=== PATIENT | male | born 2000 | race American Indian/Alaskan Native ===

== ENCOUNTER 2019-03-05 17:34 | Emergency (ER) | payer OTHER ==
--- NOTE | 2019-03-05 18:25 | Emergency Department Report ---
Chief Complaint: Nausea/Vomiting/Diarrhea Stated Complaint: STOMACH VIRUS/FOOD POISON Time Seen by Provider: 03/05/19 18:21 - HPI History of Present Illness: This is a 18 y.o. male that presents to the ER with n/v/d and abdominal pain since last night. Patient reports eating dinner he prepared and felt sick after eating dinner. No PMH Denies chest pain, sob, tarry stools, urinary frequency, urgency, hematuria, or dysuria. - Exam Vital Signs: Vital Signs 03/05/19 18:20 Temperature 97.9 F Pulse Rate 105 H Respiratory 18 Rate Blood Pressure 116/67 O2 Sat by Pulse 100 Oximetry MSE screening note: Focused history and physical exam performed. Due to findings the following was ordered: labs ED Disposition for MSE Condition: Stable
[2019-03-05 18:53] LABS: Basophils % (Auto) 0.2 % (0.0-1.8); Eosinophils % (Auto) 0.1 % (0.0-4.3); Hematocrit 50.7 % (35.5-45.6); Hemoglobin 16.8 gm/dl (11.8-15.2); Lymphocytes # (Auto) 0.7 K/mm3 (1.2-5.4); Lymphocytes % (Auto) 7.8 % (13.4-35.0); Mean Corpuscular HGB Conc 33 % (32-34); Mean Corpuscular Volume 82 fl (84-94); Monocytes # (Auto) 0.9 K/mm3 (0.0-0.8); Monocytes % (Auto) 10.1 % (0.0-7.3); Platelet Count 325 K/mm3 (140-440); Red Blood Count 6.18 M/mm3 (3.65-5.03); Red Cell Distribution Width 13.2 % (13.2-15.2)
[2019-03-05 19:20] LABS: Alanine Aminotransferase 42 units/L (7-56); Albumin 4.9 g/dL (3.9-5); BUN/Creatinine Ratio 17; Blood Urea Nitrogen 19 mg/dL (9-20); Calcium 10.6 mg/dL (8.4-10.2); Hemolysis Index 8
[2019-03-05] MEDS ORDERED: NACL 0.9% 1000 ML 1,000 ML IV ONE (20:15)
[2019-03-05] MEDS ORDERED: PEPCID IV ONE (20:16)
[2019-03-05] MEDS ORDERED: ZOFRAN IV ONE (20:16)
[2019-03-05] MEDS ORDERED: TORADOL IV ONE (20:16)
--- NOTE | 2019-03-05 20:25 | Emergency Department Report ---
ED N/V/D HPI - General Chief complaint: Nausea/Vomiting/Diarrhea Stated complaint: STOMACH VIRUS/FOOD POISON Time Seen by Provider: 03/05/19 18:21 Source: patient Mode of arrival: Ambulatory Limitations: No Limitations - History of Present Illness Initial comments: Patient is a 18-year-old -[place] male with no past medical history who presents to the ED with complaint of acute onset of persistent severe intractable nausea, vomiting, diarrhea and diffuse abdominal pain, worse in the epigastric area for the last 12 hours. Patient states that he is on brother has had similar symptoms but less severe. Patient attributes these symptoms to po ssibly the dinner he and family had over 24 hours ago. Patient states that he has had multiple episodes of nausea and vomiting and diarrhea all day. Patient denies fever, chills, chest pain, shortness of breath, sore throat, dysuria, urinary frequency and urgency, testicle pain or dizziness. MD complaint: nausea, vomiting, diarrhea, abdominal pain -: Sudden, hour(s) (12), This morning Description of Vomiting: food contents, watery, bilious Description of Diarrhea: water Associated Abdominal Pain: Yes (diffuse but more severe in the epigastric area) Location: diffuse, epigastric Radiation: none Severity: severe Pain Scale: 7 Quality: cramping, aching Consistency: intermittent Improves with: none Worsens with: eating, vomiting Context: possible food poisoning, sick contacts Associated Symptoms: loss of appetite, malaise, nausea/vomiting. denies: myalgias, chest pain, cough, diaphoresis, fever/chills, headaches, rash, dysuria, shortness of breath, syncope, weakness - Related Data Previous Rx's Medication Instructions Recorded Last Taken Type Dicyclomine [Bentyl] 20 mg PO Q6H PRN #20 tablet 03/05/19 Unknown Rx Diphenoxylate/Atropine [Lomotil] 1 tab PO Q4H PRN #15 tablet 03/05/19 Unknown Rx Ondansetron [Zofran Odt] 4 mg PO Q6HR #15 tab.rapdis 03/05/19 Unknown Rx Ranitidine HCl [Zantac] 150 mg PO Q12H #20 tablet 03/05/19 Unknown Rx Allergies Allergy/AdvReac Type Severity Reaction Status Date / Time No Known Allergies Allergy Verified 03/05/19 17:36 ED Review of Systems ROS: Stated complaint: STOMACH VIRUS/FOOD POISON Other details as noted in HPI Comment: All other systems reviewed and negative Constitutional: no symptoms reported, see HPI. denies: chills, diaphoresis, fever, malaise, weakness Eyes: as per HPI. denies: eye pain, eye discharge, vision change ENT: as per HPI. denies: ear pain, throat pain, dental pain, hearing loss, epistaxis, congestion Respiratory: no symptoms reported, see HPI. denies: cough, orthopnea, shortness of breath, SOB with exertion Cardiovascular: as per HPI. denies: chest pain, palpitations, dyspnea on exertion, edema, syncope, paroxysmal nocturnal dyspnea Endocrine: no symptoms reported, see HPI. denies: excessive sweating, flushing, intolerance to cold, intolerance to heat, increased hunger, increased thirst, increased urine, unexplained weight gain Gastrointestinal: as per HPI, abdominal pain, nausea, vomiting, diarrhea. denies: constipation, hematemesis, melena, hematochezia Genitourinary: as per HPI. denies: urgency, dysuria, frequency, hematuria, discharge, testicular pain Musculoskeletal: as per HPI. denies: back pain, joint swelling, arthralgia, myalgia Skin: as per HPI. denies: rash, lesions, change in color, change in hair/nails Neurological: as per HPI. denies: headache, weakness, numbness, paresthesias, abnormal gait Psychiatric: as per HPI Hematological/Lymphatic: as per HPI ED Past Medical Hx - Past Medical History Previous Medical History?: No - Surgical History Past Surgical History?: No - Social History Smoking Status: Never Smoker - Medications Home Medications: Home Medications Medication Instructions Recorded Confirmed Last Taken Type Dicyclomine [Bentyl] 20 mg PO Q6H PRN #20 tablet 03/05/19 Unknown Rx Diphenoxylate/Atropine [Lomotil] 1 tab PO Q4H PRN #15 tablet 03/05/19 Unknown Rx Ondansetron [Zofran Odt] 4 mg PO Q6HR #15 tab.rapdis 03/05/19 Unknown Rx Ranitidine HCl [Zantac] 150 mg PO Q12H #20 tablet 03/05/19 Unknown Rx ED Physical Exam - General Limitations: No Limitations General appearance: alert, in no apparent distress - Head Head exam: Present: atraumatic, normocephalic, normal inspection - Eye Eye exam: Present: normal appearance, PERRL, EOMI - ENT ENT exam: Present: normal exam, normal orophraynx, mucous membranes moist, TM's normal bilaterally, normal external ear exam - Neck Neck exam: Present: normal inspection, full ROM - Respiratory Respiratory exam: Present: normal lung sounds bilaterally. Absent: respiratory distress, wheezes, rhonchi, chest wall tenderness, accessory muscle use, decreased breath sounds, prolonged expiratory - Cardiovascular Cardiovascular Exam: Present: normal rhythm, tachycardia, normal heart sounds - GI/Abdominal GI/Abdominal exam: Present: soft, tenderness (epigastric mild), normal bowel sounds. Absent: guarding, rebound, hyperactive bowel sounds, hypoactive bowel sounds - Rectal Rectal exam: Present: deferred - Extremities Exam Extremities exam: Present: normal inspection, full ROM, normal capillary refill - Back Exam Back exam: Present: normal inspection, full ROM. Absent: CVA tenderness (R), CVA tenderness (L), muscle spasm, paraspinal tenderness, vertebral tenderness - Neurological Exam Neurological exam: Present: alert, oriented X3, CN II-XII intact, normal gait, motor sensory deficit - Psychiatric Psychiatric exam: Present: normal affect, normal mood - Skin Skin exam: Present: warm, dry, intact, normal color ED Course Vital Signs 03/05/19 18:20 Temperature 97.9 F Pulse Rate 105 H Respiratory 18 Rate Blood Pressure 116/67 O2 Sat by Pulse 100 Oximetry - Reevaluation(s) Reevaluation #1: 03/05/19 22:13 Patient is alert and oriented 3 and is not in any distress but slightly tachycardic. Labs were drawn and patient is in the ED for nausea and vomiting and pain, and also received normal saline 1 L IV bolus. Lab test results were reviewed and are unremarkable except for mild hyponatremia of 134 mmol per liter. On reevaluation, patient's vital signs are unremarkable and tachycardia resolved. Patient feeling much better with treatment. Patient is discharged home on medications and advised to maintain at 12-24 hours of clear liquid diet, and to follow up with his primary care physician in 3-5 days for reevaluation. Patient was advised to return to the ED immediately if symptoms get worse. 03/05/19 22:16 ED Medical Decision Making - Lab Data Result diagrams: 03/05/19 18:41 03/05/19 18:41 - Medical Decision Making Patient is alert and oriented 3 and is not in any distress but slightly tachycardic. Labs were drawn and patient is in the ED for nausea and vomiting and pain, and also received normal saline 1 L IV bolus. On reevaluation, patient's vital signs are unremarkable and tachycardia resolved. Patient feelin g much better with treatment. Patient is discharged home on medications and advised to maintain at 12-24 hours of clear liquid diet, and to follow up with his primary care physician in 3-5 days for reevaluation. Patient was advised to return to the ED immediately if symptoms get worse. - Differential Diagnosis Viral gastroenteritis, Nausea, vomiting and diarrhea, abdominal pain Critical care attestation.: If time is entered above; I have spent that time in minutes in the direct care of this critically ill patient, excluding procedure time. ED Disposition Clinical Impression: Nausea, vomiting and diarrhea, Viral gastroenteritis Abdominal pain Qualifiers: Abdominal location: epigastric Qualified Code(s): R10.13 - Epigastric pain Disposition: DC- TO HOME OR SELFCARE Is pt being admited?: No Does the pt Need Aspirin: No Condition: Stable Instructions: Gastroenteritis (ED), Acute Nausea and Vomiting (ED), Abdominal Pain (ED) Additional Instructions: Maintain a clear liquid diet for 12-24 hours, take medications and drink plenty of fluids, and follow up with your Primary care Physician as advised. Return to the ED immediately if symptoms get worse. Prescriptions: Dicyclomine [Bentyl] 20 mg PO Q6H PRN #20 tablet PRN Reason: Pain , Severe (7-10) Diphenoxylate/Atropine [Lomotil] 1 tab PO Q4H PRN #15 tablet PRN Reason: Diarrhea Ranitidine HCl [Zantac] 150 mg PO Q12H #20 tablet Ondansetron [Zofran Odt] 4 mg PO Q6HR #15 tab.[email or web address] Referrals: DIMITRY WILL MD [Primary Care Provider] - 3-5 Days Time of Disposition: 22:17 Print Language: OCCITAN
[2019-03-05 22:51] VITALS: BP 99/57
== END 2019-03-05 23:00 | disposition home or self-care (01) ==
LOC: ED 17:34
DX: A08.4 Viral intestinal infection, unspecified (principal); R10.13 Epigastric pain
CPT/HCPCS: 36415; 80053; 83690; 85025; 96361; 96374; 96375; 99283; J1885; J2405; J7030